=== PATIENT | male | born 1985 | race Caucasian/White ===

== ENCOUNTER 2018-01-24 10:18 | Emergency (ER) | payer OTHER, SELFPAY ==
[2018-01-24 10:21] VITALS: BP 164/95; PULSE 89; RESP 18; TEMP 36.6; O2SAT 98; BMI 37.3
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
[2018-01-24] MEDS: Diphth,Pertuss(Acell),Tet Vac 0.5 ML Vial IM (11:13)
[2018-01-24 12:25] VITALS: PULSE 81; RESP 22; O2SAT 98
[2018-01-24] MEDS: BACITRACIN 15 GM Tube 1 APPLIC TOPICAL (12:25)
--- NOTE | 2018-01-24 12:26 | ED.RN ---
THIS NURSE REVIEWED D/C INSTRUCTIONS WITH PT. PT VERBALIZED UNDERSTANDING OF INSTRUCTIONS. PT DENIES FURTHER NEEDS OR QUESTIONS AT THIS TIME
== END 2018-01-24 12:27 | disposition home or self-care (01) ==
PROVIDERS: Emergency Provider Emergency Medicine
DX: S01.81XA Laceration without foreign body of other part of head, initial encounter (principal); V43.52XA Car driver injured in collision with other type car in traffic accident, initial encounter; Y93.9 Activity, unspecified; Y92.410 Unspecified street and highway as the place of occurrence of the external cause; Y99.8 Other external cause status; Z23 Encounter for immunization; R55 Syncope and collapse
CPT/HCPCS: 12011; 90471; 90715; 99283

== ENCOUNTER 2021-10-16 22:51 | Emergency (ER) | payer OTHER, SELFPAY ==
[2021-10-16 22:52] VITALS: BP 174/91; PULSE 75; RESP 16; TEMP 36.3; O2SAT 98; BMI 43.6
--- NOTE | 2021-10-16 23:51 | EX.ED.UPPERE ---
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 The blade came out of the handle and he sustained a laceration thenar eminence of his right hand. Tetanus is up-to-date. He denies paresthesia, anesthesia or motor weakness. Tetanus Immunization: <5 years Prior similar symptoms: Yes Recent Illness/Hospitalization: No PFSH PFSH Medical History no medical history Home Medications NK 10/16/21 [History Last Taken Unknown] Allergy/AdvReac Type Severity Reaction Status Date / Time No Known Allergies Allergy Verified 10/16/21 22:53 Surgical History no surgical history Social History (Updated 10/16/21 @ 23:[address] Monster Gomez MD) household members: spouse and children Smoking Status: Current every day smoker tobacco type: cigarettes substance use type: does not use ROS ROS ED Constitutional Constitutional ED: Denies fever(s) or subjective Musculoskeletal Musculoskeletal: Denies myalgias or neck pain Integumentary Reports other Details: Laceration thenar eminence right hand ; Denies abscess, Abrasions or rash Neurologic Neurologic: Denies headache(s), paresthesias or weakness Hematologic/Lymphatic Hematologic/Lymphatic: Denies easy bleeding or easy bruising EXAM Physical Exam Const Vital Signs: 10/16/21 22:52 Temperature 97.3 F L Temperature Source Temporal Pulse Rate 75 Respiratory Rate 16 Blood Pressure 174/91 H Blood Pressure Mean 118 Pulse Ox 98 Oxygen Delivery Method Room Air Positive well nourished, well developed and obese General Appearance ED: well developed and NAD Nutritional Appearance: obese HEENT normocephalic Eyes PERRL Resp normal respiratory effort Cardio regular rate and regular rhythm Extremity full ROM; Negative for normal to inspection Extremity Narrative: Median, radial and ulnar function intact. The flexor digitorum superficialis and flexor digitorum profundus are intact to the little and ring finger. Sensation is normal. Capillary refill is normal. General Extremety ED: Negative for edema General Extremity: Negative for edema Neuro oriented x3 and CN's II-XII intact bilaterally Sensorium / Orientation: alert Skin Lesions: no lesions Rashes: no rashes Trauma: laceration; Negative for no lacerations or abrasions MDM MDM MDM Narrative Medical decision making narrative: Patient with laceration which will require repair. Tetanus is up-to-date. Procedures Other Procedures Procedure(s): 3.0 cm linear laceration thenar eminence right hand. Patient was prepped draped sterile manner. The area was Nestabs 1% lidocaine for local filtration. The wound was irrigated with 200 cc of normal saline. The wound was closed using 4-0 Ethilon. A total of 5 simple interrupted sutures was placed. Patient tolerated procedure. Discharge Plan Triage Chief Complaint: Laceration ED Provider: Monster Gomez Dx/Rx/DC Orders Clinical Impression: Laceration of finger of right hand Instructions: ED Laceration, Hand: All Closures Prescriptions: No Action NK RF: 0 Primary Care Provider: Care Physician,No Primary Referrals: Carine Douglas MD [STAFF PHYSICIAN] - 10 Day for suture removal Care Physician,No Primary [Primary Care Provider] - Activity Restrictions/Additional Instructions: 1. Keep wound clean and dry 2. Apply peroxide on a Q-tip across laceration 3 times a day 3. Apply bacitracin after cleaning with peroxide Disposition Disposition: Home, Self Care
[2021-10-17] MEDS: Lidocaine 1% (20 ml mdv) 20 ML Vial INFILT (00:09)
== END 2021-10-17 00:11 | disposition home or self-care (01) ==
PROVIDERS: Emergency Provider Emergency Medicine
DX: S61.219A Laceration without foreign body of unspecified finger without damage to nail, initial encounter (principal); W27.8XXA Contact with other nonpowered hand tool, initial encounter; Y93.9 Activity, unspecified; Y92.89 Other specified places as the place of occurrence of the external cause; Y99.8 Other external cause status; Z23 Encounter for immunization; F17.210 Nicotine dependence, cigarettes, uncomplicated; E66.9 Obesity, unspecified
CPT/HCPCS: 12002; 99284

== ENCOUNTER → 2022-02-18 | Outpatient (CLI) | payer OTHER, SELFPAY ==
--- NOTE | 2022-02-18 15:21 | MRI_ITS ---
STUDY: MRI LEFT ANKLE WITHOUT CONTRAST REASON FOR EXAM: Male, 37 years old. CALCANEAL FX, PERONEAL TENDONITIS TECHNIQUE: Standardized fat and water weighted pulse sequences were obtained in all 3 orthogonal planes. COMPARISON: None. FINDINGS: Normal subcutis adipose space. Normal posterior tibialis tendon. Normal flexor digitorum longus tendon. Normal flexor hallucis longus tendon. Normal peroneus longus and brevis tendons. Normal tibialis anterior tendon. Normal extensor hallucis longus tendon. Normal extensor digitorum longus tendons. Normal Achilles tendon and teno-osseous insertion. Normal plantar fascia. Normal plantar calcaneal tubercles. Normal intrinsic muscles of the rearfoot. Normal distal tibiofibular syndesmotic ligamentous complex. Normal lateral ligamentous complex. Normal subtalar ligaments and sinus tarsi. Normal deltoid ligamentous complexes. Normal plantar calcaneonavicular (spring) ligament. Normal tibiotalar articulation. Normal talar dome. Normal subtalar articulations. Normal talonavicular articulation. Normal calcaneocuboid articulation. Normal navicular-cuneiform articulations. MRI/Lower Ext Joint Only (Routine) IMPRESSION: Normal MRI of the ankle and rearfoot. Electronically Signed: Hong Orr MD at 5:42 EDT ,
== END | disposition home or self-care (01) ==
LOC: MRI 15:09
PROVIDERS: Visit Provider Podiatrist
DX: M72.2 Plantar fascial fibromatosis (principal); M79.672 Pain in left foot; M76.72 Peroneal tendinitis, left leg; M84.375A Stress fracture, left foot, initial encounter for fracture
CPT/HCPCS: 73721